=== PATIENT | female | born 1990 | race Caucasian/White ===

== ENCOUNTER 2024-01-06 22:20 | Emergency (ER) | payer OTHER ==
[~2024-01-06] VITALS: Ht 165.1 cm; Wt 63.5 kg
[2024-01-06 22:20] VITALS: O2SAT 98
[2024-01-06] MEDS ORDERED: LEVE1000 PO (22:40)
[2024-01-06 23:24] LABS: BASOPHILS # (AUTO) 0.2 K/UL (0.0-0.2); BASOPHILS % (AUTO) 1.3 % (0.0-2.0); EOSINOPHILS % (AUTO) 0.3 % (0.0-7.0); HEMATOCRIT 43.1 % (31.2-41.9); HEMOGLOBIN 14.7 g/dL (10.9-14.3); LYMPHOCYTES # (AUTO) 0.9 K/uL (0.8-4.8); LYMPHOCYTES % (AUTO) 7.2 % (20.5-51.5); MEAN CORPUSCULAR HEMOGLOBIN 33.1 uug (24.7-32.8); MEAN CORPUSCULAR HGB CONC 34 g/dL (32.3-35.6); MEAN CORPUSCULAR VOLUME 97.1 fL (75.5-95.3); MONOCYTES # (AUTO) 0.7 K/uL (0.1-1.30); MONOCYTES % (AUTO) 5.9 % (0.0-11.0); NEUTROPHILS # (AUTO) 10.7 K/uL (1.8-8.9); NEUTROPHILS % (AUTO) 85.3 % (38.5-71.5); PLATELET COUNT (AUTO) 299 K/uL (179-408); RED BLOOD CELL COUNT(AUTO) 4.44 MIL/uL (3.63-4.92); RED CELL DISTRIBUTION WIDTH 13.2 % (12.3-17.7); WHITE BLOOD COUNT (AUTO) 12.5 K/uL (3.8-11.8)
[2024-01-07] LABS: ETHANOL < 3 MG/DL (0-10)
[2024-01-07] MEDS ORDERED: ACETAMINOPHEN 500 MG TABLET ONE
[2024-01-07] MEDS: ACETAMINOPHEN 500 MG TABLET PO ONE (00:03)
[2024-01-07 00:13] LABS: *URINE HCG, QUAL NEGATIVE (NEGATIVE)
[2024-01-07 00:25] LABS: *AMPHETAMINE, URINE NEGATIVE (NEGATIVE); *BARBITURATE, URINE NEGATIVE (NEGATIVE); *BENZODIAZEPINE, URINE NEGATIVE (NEGATIVE); *CANNABINOID, URINE POSITIVE (NEGATIVE); *OPIATE, URINE NEGATIVE (NEGATIVE); *PHENCYCLIDINE SCREEN,URINE NEGATIVE (NEGATIVE); FENTANYL, URINE NEGATIVE (NEGATIVE)
[2024-01-07] MEDS ORDERED: LORAZEPAM 2 MG/1 ML VIAL ONE (01:07)
[2024-01-07 01:20] LABS: *COCCAINE, URINE NEGATIVE (NEGATIVE)
[2024-01-07 01:24] LABS: ALANINE AMINOTRANSFERASE 66 U/L (14-59); ALKALINE PHOSPHATASE 86 U/L (50-136); ASPARTATE AMINOTRANSFERASE 59 U/L (15-37); BILIRUBIN,TOTAL 0.8 mg/dL (0.2-1.0); CALCIUM 9.6 mg/dL (8.5-10.1); CARBON DIOXIDE 21 mmol/L (21-32); GLUCOSE 96 mg/dL (74-106); UREA NITROGEN, BLOOD 13 mg/dL (7-18)
[2024-01-07 01:41] LABS: CHLORIDE 102 mmol/L (98-107); POTASSIUM 3.3 mmol/L (3.5-5.1); SODIUM SERUM 138 mmol/L (136-145)
[2024-01-07 01:56] LABS: LACTIC ACID 2.5 mmol/L (0.4-2.0)
[2024-01-07 02:14] LABS: BILIRUBIN,DIRECT 0.3 mg/dL (0.0-0.2)
== END 2024-01-07 00:51 | disposition left against medical advice (07) ==
LOC: ER 22:21
DX: R56.9 Unspecified convulsions (principal); R10.2 Pelvic and perineal pain; F32.A Depression, unspecified; F17.210 Nicotine dependence, cigarettes, uncomplicated; Z79.899 Other long term (current) drug therapy
CPT/HCPCS: 80076; 80048; 84703; 85025; 36415 ×2; 93005; 99284; 83605 ×2; 80320; 80307; J2060; A4606; A4663; A9150; G0480

== ENCOUNTER 2024-01-07 01:06 | Inpatient (IN) | payer OTHER ==
[~2024-01-07] VITALS: Ht 165.1 cm; Wt 63.5 kg
[~2024-01-07 01:06] MED LIST: LEVE1000 PO
[2024-01-07] MEDS: LORAZEPAM 2 MG/1 ML VIAL IM ONE (01:25)
[2024-01-07] MEDS ORDERED: MAGNESIUM HYDROXIDE 30 ML LIQUID UDC PO PRN (03:30)
[2024-01-07] MEDS ORDERED: LORAZEPAM 2 MG/1 ML VIAL IV PRN (03:30)
[2024-01-07] MEDS ORDERED: ONDANSETRON 4 MG/2 ML VIAL IV PRN (03:30)
[2024-01-07] MEDS ORDERED: REMEDY ESSENTIAL ZINC PASTE 113 GM TP PRN (03:30)
[2024-01-07] MEDS ORDERED: ACETAMINOPHEN 325 MG TABLET PO PRN (03:30)
[2024-01-07] MEDS: IV NS 1000 ML 1,000 ML IV PRN (05:08)
[2024-01-07] MEDS: MAGNESIUM SULFATE/D5W 100 ML IV SCH (05:09)
[2024-01-07] MEDS ORDERED: PHENYTOIN SODIUM 250 MG/5 ML VIAL IV ONE (05:20)
[2024-01-07] MEDS: PHENYTOIN SODIUM IV 1,000 MG in IV NORMAL SALINE 100 ML IV ONE (05:31)
[2024-01-07 05:55] VITALS: BP 120/72; TEMP 97.8; O2SAT 98
[2024-01-07 07:16] LABS: BASOPHILS % (AUTO) 0.4 % (0.0-2.0); EOSINOPHILS % (AUTO) 0.3 % (0.0-7.0); HEMATOCRIT 39.1 % (31.2-41.9); HEMOGLOBIN 13.6 g/dL (10.9-14.3); MEAN CORPUSCULAR HEMOGLOBIN 34.1 uug (24.7-32.8); MEAN CORPUSCULAR HGB CONC 35 g/dL (32.3-35.6); NEUTROPHILS # (AUTO) 10.1 K/uL (1.8-8.9); NEUTROPHILS % (AUTO) 83.3 % (38.5-71.5); PLATELET COUNT (AUTO) 278 K/uL (179-408); RED BLOOD CELL COUNT(AUTO) 3.99 MIL/uL (3.63-4.92); RED CELL DISTRIBUTION WIDTH 12.8 % (12.3-17.7); WHITE BLOOD COUNT (AUTO) 12.1 K/uL (3.8-11.8)
[2024-01-07 07:17] LABS: DIFFERENTIAL COMMENT 1
[2024-01-07 07:55] VITALS: BP 127/59; TEMP 98.3; O2SAT 98
[2024-01-07] MEDS ORDERED: levETIRAcetam IV 1,000 MG in IV DEXTROSE 5% 100 ML IV SCH (09:00)
== END 2024-01-07 08:20 | disposition left against medical advice (07) | DRG 53 ==
LOC: ER 01:19 → TELE3 03:28
PROVIDERS: ADMIT Nurse Practitioner Acute Care; ATTEND Internal Medicine
DX: G40.909 Epilepsy, unspecified, not intractable, without status epilepticus (principal); E87.20 Acidosis, unspecified; D72.829 Elevated white blood cell count, unspecified; F17.210 Nicotine dependence, cigarettes, uncomplicated; E87.6 Hypokalemia; R74.01 Elevation of levels of liver transaminase levels; D75.89 Other specified diseases of blood and blood-forming organs; E53.8 Deficiency of other specified B group vitamins; Z53.29 Procedure and treatment not carried out because of patient's decision for other reasons
CPT/HCPCS: 36415; 70450; 80299; 85025; A4663; G0378; J1165; J1953; J3475; J7040